=== PATIENT | male | born 1950 | race Caucasian/White ===

== ENCOUNTER 2024-05-29 09:41 | Emergency (ER) | payer BC ==
[2024-05-29 10:33] LABS: BASOPHILS ABSOLUTE AUTO 0.03 K/uL (0.00-0.20); BASOPHILS PERCENT AUTO 0.4 % (0.0-1.0); EOSINOPHILS ABSOLUTE AUTO 0.03 K/uL (0.00-0.45); EOSINOPHILS PERCENT AUTO 0.4 % (0.0-6.0); HEMATOCRIT 39.9 % (42.0-52.0); HEMOGLOBIN 13.9 g/dL (14.0-18.0); IMMATURE GRAN ABSOLUTE AUTO 0.03 K/uL (0.00-0.05); IMMATURE GRAN PERCENT AUTO 0.4 % (0.0-0.4); LYMPHOCYTES ABSOLUTE AUTO 1.08 K/uL (1.00-4.80); LYMPHOCYTES PERCENT AUTO 14.4 % (24.0-44.0); MEAN CORPUSCULAR HEMOGLOBIN 36.4 pg (28.0-32.0); MEAN CORPUSCULAR HGB CONC 34.8 g/dL (32.0-36.0); MEAN CORPUSCULAR VOLUME 104.5 fL (83.0-99.0); MEAN PLATELET VOLUME 10.3 fL (9.4-12.4); MONOCYTES ABSOLUTE AUTO 1.46 K/uL (0.00-0.80); MONOCYTES PERCENT AUTO 19.5 % (0.0-8.0); NEUTROPHILS ABSOLUTE AUTO 4.87 K/uL (1.80-7.70); NEUTROPHILS PERCENT AUTO 64.9 % (41.0-71.0); PLATELET COUNT,PLT 173 K/uL (150-400); RED BLOOD CELL COUNT 3.82 M/uL (4.52-5.90)
[2024-05-29 10:48] LABS: INR 1.16 (0.86-1.11)
== END 2024-05-29 14:22 | disposition home or self-care (01) ==
LOC: MW.ED 09:41
DX: S06.5X0A Traumatic subdural hemorrhage without loss of consciousness, initial encounter (principal); W01.198A Fall on same level from slipping, tripping and stumbling with subsequent striking against other object, initial encounter; Y93.89 Activity, other specified
CPT/HCPCS: 36415; 70450; 70450-26; 85025; 85610; 99283; 99285

== ENCOUNTER 2024-06-08 11:49 | Emergency (ER) | payer BC | END 2024-06-08 15:58 | disposition home or self-care (01) | LOC: MW.ED 11:49 | DX: S06.5X0A Traumatic subdural hemorrhage without loss of consciousness, initial encounter (principal); Z75.3 Unavailability and inaccessibility of health-care facilities; W01.198A Fall on same level from slipping, tripping and stumbling with subsequent striking against other object, initial encounter | CPT/HCPCS: 70450; 70450-26; 99283; 99284 ==

== ENCOUNTER 2024-09-18 13:31 | Inpatient (IN) | payer BC ==
[2024-09-18] MEDS ORDERED: Sodium Chloride 0.9% 2.5 ML Syringe FLUSH PRN ×2 (13:56→17:05)
[2024-09-18] MEDS ORDERED: Sodium Chloride 0.9% 10 ML Syringe FLUSH PRN ×2 (13:56→17:05)
[2024-09-18] MEDS: LORazepam 2 MG/ML SDV IVPUSH ONE ×2 (14:09→14:57)
[2024-09-18 14:37] LABS: INR 1.13 (0.86-1.11); PTT,PARTIAL THROMBOPLSTIN TIME 24.1 SEC (23.9-30.7)
[2024-09-18 14:54] LABS: LACTIC ACID 6.1 mmol/L (0.4-2.0)
[2024-09-18 15:03] LABS: A/G RATIO 0.9 (0.9-1.6); ALANINE AMINOTRANSFERASE,ALT 104 IU/L (14-63); ASPARTATE AMNIOTRANSFERASE,AST 156 IU/L (15-37); BILIRUBIN TOTAL 3.8 mg/dL (0.2-1.0); BLOOD UREA NITROGEN,BUN 15 mg/dL (7.0-18.0); CARBON DIOXIDE,CO2 23.1 mmol/L (21.0-32.0); CHLORIDE,CL 97 mmol/L (98-107); CREATININE 1.4 mg/dL (0.8-1.3); EST CRCL DRUG DOSING (CG) 50.81 mL/min; ETHANOL BLOOD MEDICAL <3 mg/dL; GLUCOSE RANDOM 124 mg/dL (74-106); POTASSIUM,K 3.6 mmol/L (3.5-5.1); PRO B-TYPE NATRIUR PEPT,BNPPRO 717 pg/mL (0-125); PROTEIN TOTAL,TP 7.4 g/dL (6.4-8.2); SODIUM,NA 138 mmol/L (136-148)
[2024-09-18 15:04] LABS: ESTIMATED GFR 53 mL/min (>60)
[2024-09-18 15:05] LABS: CREATINE KINASE,CK 1951 U/L (26-308)
[2024-09-18 15:14] LABS: BASOPHILS ABSOLUTE AUTO 0.01 K/uL (0.00-0.20); BASOPHILS PERCENT AUTO 0.1 % (0.0-1.0); EOSINOPHILS ABSOLUTE AUTO 0.00 K/uL (0.00-0.45); EOSINOPHILS PERCENT AUTO 0.0 % (0.0-6.0); IMMATURE GRAN ABSOLUTE AUTO 0.08 K/uL (0.00-0.05); IMMATURE GRAN PERCENT AUTO 0.8 % (0.0-0.4); LYMPHOCYTES ABSOLUTE AUTO 0.30 K/uL (1.00-4.80); LYMPHOCYTES PERCENT AUTO 3.0 % (24.0-44.0); MEAN PLATELET VOLUME 10.8 fL (9.4-12.4); MONOCYTES ABSOLUTE AUTO 1.24 K/uL (0.00-0.80); MONOCYTES PERCENT AUTO 12.3 % (0.0-8.0); NEUTROPHILS ABSOLUTE AUTO 8.49 K/uL (1.80-7.70); NEUTROPHILS PERCENT AUTO 83.8 % (41.0-71.0); NRBC ABSOLUTE 0.00 K/uL (0.00-0.02); NRBC PERCENT 0.0 /100WBC (0.0-0.2); RED BLOOD CELL COUNT 3.58 M/uL (4.52-5.90); WHITE BLOOD CELL COUNT,WBC 10.12 K/uL (3.9-11.3)
[2024-09-18 15:15] LABS: PLATELET COUNT,PLT 133 K/uL (150-400)
[2024-09-18] MEDS: Iopamidol 755 MG/ML 500 ML Multipack Bottle IVPUSH STA (15:31)
[2024-09-18] MEDS: Magnesium Sulfate 2 GM/50 mL 2 GM in Premix Bag 1 BAG IV ONE ×2 (16:03→18:32)
[2024-09-18] MEDS ORDERED: Ondansetron 4 MG/2 ML SDV IVPUSH PRN (17:05)
[2024-09-18] MEDS ORDERED: Naloxone 0.4 MG/ML SDV IVPUSH PRN (17:05)
[2024-09-18] MEDS: Pantoprazole 40 MG in Sodium Chloride 0.9% 10 ML IVPUSH SCH (18:33)
[2024-09-18] MEDS: Folic Acid 1 MG/0.2 ML UD Syringe IV SCH (18:33)
[2024-09-18] MEDS ORDERED: PHENobarbital Sodium 130 MG/ML SDV IVPUSH PRN (18:42)
[2024-09-18] MEDS ORDERED: PHENobarbitaL sodium 260 MG in Sodium Chloride 0.9% 100 ML IV PRN (18:43)
[2024-09-18] MEDS: PHENobarbital Sodium 130 MG/ML SDV IVPUSH PRN (22:17)
[2024-09-19 05:46] LABS: BASOPHILS ABSOLUTE AUTO 0.01 K/uL (0.00-0.20); BASOPHILS PERCENT AUTO 0.1 % (0.0-1.0); EOSINOPHILS ABSOLUTE AUTO 0.04 K/uL (0.00-0.45); EOSINOPHILS PERCENT AUTO 0.5 % (0.0-6.0); IMMATURE GRAN ABSOLUTE AUTO 0.04 K/uL (0.00-0.05); IMMATURE GRAN PERCENT AUTO 0.5 % (0.0-0.4); LYMPHOCYTES ABSOLUTE AUTO 1.18 K/uL (1.00-4.80); LYMPHOCYTES PERCENT AUTO 15.5 % (24.0-44.0); MEAN PLATELET VOLUME 10.5 fL (9.4-12.4); MONOCYTES ABSOLUTE AUTO 0.87 K/uL (0.00-0.80); MONOCYTES PERCENT AUTO 11.4 % (0.0-8.0); NEUTROPHILS ABSOLUTE AUTO 5.47 K/uL (1.80-7.70); NEUTROPHILS PERCENT AUTO 72.0 % (41.0-71.0); NRBC ABSOLUTE 0.00 K/uL (0.00-0.02); NRBC PERCENT 0.0 /100WBC (0.0-0.2); PLATELET COUNT,PLT 110 K/uL (150-400); RED BLOOD CELL COUNT 2.87 M/uL (4.52-5.90); WHITE BLOOD CELL COUNT,WBC 7.61 K/uL (3.9-11.3)
[2024-09-19 06:18] LABS: A/G RATIO 0.8 (0.9-1.6); ALANINE AMINOTRANSFERASE,ALT 73.0 IU/L (14-63); ASPARTATE AMNIOTRANSFERASE,AST 178.0 IU/L (15-37); BILIRUBIN TOTAL 1.7 mg/dL (0.2-1.0); BLOOD UREA NITROGEN,BUN 9.0 mg/dL (7.0-18.0); CARBON DIOXIDE,CO2 26.1 mmol/L (21.0-32.0); CHLORIDE,CL 104.0 mmol/L (98-107); CREATININE 0.6 mg/dL (0.8-1.3); EST CRCL DRUG DOSING (CG) 122.07 mL/min; GLUCOSE RANDOM 74.0 mg/dL (74-106); PHOSPHORUS 2.7 mg/dL (2.6-4.7); POTASSIUM,K 3.0 mmol/L (3.5-5.1); PROTEIN TOTAL,TP 5.0 g/dL (6.4-8.2); SODIUM,NA 141.0 mmol/L (136-148)
[2024-09-19 06:23] LABS: CREATINE KINASE,CK 4221.0 U/L (26-308); ESTIMATED GFR 101.0 mL/min (>60)
[2024-09-19 06:53] LABS: INR 1.1 (0.86-1.11)
[2024-09-19 09:37] LABS: GLUCOSE,URINE NEGATIVE (NEGATIVE); OCCULT BLOOD,URINE LARGE (NEGATIVE)
[2024-09-19 09:39] LABS: APPEARANCE,URINE SLT CLOUDY
[2024-09-19 09:46] LABS: AMPHETAMINES SCREEN, URINE NEGATIVE (CUTOFF=500); BUPRENORPHINE SCREEN,URINE NEGATIVE (CUTOFF=10); METHADONE SCREEN, URINE NEGATIVE (CUTOFF=200); METHAMPHETAMINES SCREEN, URINE NEGATIVE (CUTOFF=500); OXYCODONE SCREEN,URINE NEGATIVE (CUT0FF=100); PCP SCREEN,URINE NEGATIVE (CUTOFF=25); THC SCREEN,URINE 20 NG/ML NEGATIVE (CUTOFF=50)
[2024-09-19] MEDS: Potassium Chloride 20 MEQ Tab.ER PO SCH (09:50)
[2024-09-19 09:51] LABS: EPITHELIAL CELLS,URINE OCCASIONAL (NONE-FEW)
[2024-09-19] MEDS: NS with KCl 40mEq 1,000 ML IV SCH (09:52)
[2024-09-19 17:37] LABS: BLOOD UREA NITROGEN,BUN 7.0 mg/dL (7.0-18.0); CARBON DIOXIDE,CO2 26.0 mmol/L (21.0-32.0); CHLORIDE,CL 106.0 mmol/L (98-107); CREATININE 0.7 mg/dL (0.8-1.3); EST CRCL DRUG DOSING (CG) 104.63 mL/min; ESTIMATED GFR 97.0 mL/min (>60); GLUCOSE RANDOM 77.0 mg/dL (74-106); POTASSIUM,K 3.6 mmol/L (3.5-5.1); SODIUM,NA 141.0 mmol/L (136-148)
[2024-09-19] MEDS: D5%-0.9% NaCl w/ KCl 40 meq 1,000 ML IV SCH (17:49)
[2024-09-20 06:05] LABS: BASOPHILS ABSOLUTE AUTO 0.02 K/uL (0.00-0.20); BASOPHILS PERCENT AUTO 0.4 % (0.0-1.0); EOSINOPHILS ABSOLUTE AUTO 0.06 K/uL (0.00-0.45); EOSINOPHILS PERCENT AUTO 1.1 % (0.0-6.0); IMMATURE GRAN ABSOLUTE AUTO 0.02 K/uL (0.00-0.05); IMMATURE GRAN PERCENT AUTO 0.4 % (0.0-0.4); LYMPHOCYTES ABSOLUTE AUTO 0.95 K/uL (1.00-4.80); LYMPHOCYTES PERCENT AUTO 17.6 % (24.0-44.0); MEAN PLATELET VOLUME 10.9 fL (9.4-12.4); MONOCYTES ABSOLUTE AUTO 0.77 K/uL (0.00-0.80); MONOCYTES PERCENT AUTO 14.3 % (0.0-8.0); NEUTROPHILS ABSOLUTE AUTO 3.57 K/uL (1.80-7.70); NEUTROPHILS PERCENT AUTO 66.2 % (41.0-71.0); NRBC ABSOLUTE 0.00 K/uL (0.00-0.02); NRBC PERCENT 0.0 /100WBC (0.0-0.2); PLATELET COUNT,PLT 130 K/uL (150-400); RED BLOOD CELL COUNT 2.75 M/uL (4.52-5.90); WHITE BLOOD CELL COUNT,WBC 5.39 K/uL (3.9-11.3)
[2024-09-20 06:49] LABS: ALANINE AMINOTRANSFERASE,ALT 64.0 IU/L (14-63); ASPARTATE AMNIOTRANSFERASE,AST 149.0 IU/L (15-37); BILIRUBIN TOTAL 1.4 mg/dL (0.2-1.0); BLOOD UREA NITROGEN,BUN 5.0 mg/dL (7.0-18.0); CARBON DIOXIDE,CO2 23.7 mmol/L (21.0-32.0); CHLORIDE,CL 105.0 mmol/L (98-107); CREATININE 0.6 mg/dL (0.8-1.3); EST CRCL DRUG DOSING (CG) 122.07 mL/min; GLUCOSE RANDOM 92.0 mg/dL (74-106); PHOSPHORUS 2.1 mg/dL (2.6-4.7); POTASSIUM,K 3.3 mmol/L (3.5-5.1); PROTEIN TOTAL,TP 4.9 g/dL (6.4-8.2); SODIUM,NA 138.0 mmol/L (136-148)
[2024-09-20 06:53] LABS: A/G RATIO 0.8 (0.9-1.6); CREATINE KINASE,CK 2160.0 U/L (26-308); ESTIMATED GFR 101.0 mL/min (>60)
[2024-09-20] MEDS: Potassium Chloride 20 MEQ Tab.ER PO ONE (08:30)
[2024-09-20] MEDS: Magnesium Sulfate 4 GM/100 mL 4 GM in Premix Bag 1 BAG IV ONE (08:31)
[2024-09-20] MEDS: Phosphorus #1 250 MG Tab PO SCH (08:42)
[2024-09-21 05:30] LABS: BASOPHILS ABSOLUTE AUTO 0.02 K/uL (0.00-0.20); BASOPHILS PERCENT AUTO 0.4 % (0.0-1.0); EOSINOPHILS ABSOLUTE AUTO 0.09 K/uL (0.00-0.45); EOSINOPHILS PERCENT AUTO 1.7 % (0.0-6.0); IMMATURE GRAN ABSOLUTE AUTO 0.02 K/uL (0.00-0.05); IMMATURE GRAN PERCENT AUTO 0.4 % (0.0-0.4); LYMPHOCYTES ABSOLUTE AUTO 0.89 K/uL (1.00-4.80); LYMPHOCYTES PERCENT AUTO 16.3 % (24.0-44.0); MEAN PLATELET VOLUME 10.1 fL (9.4-12.4); MONOCYTES ABSOLUTE AUTO 0.90 K/uL (0.00-0.80); MONOCYTES PERCENT AUTO 16.5 % (0.0-8.0); NEUTROPHILS ABSOLUTE AUTO 3.53 K/uL (1.80-7.70); NEUTROPHILS PERCENT AUTO 64.7 % (41.0-71.0); NRBC ABSOLUTE 0.00 K/uL (0.00-0.02); NRBC PERCENT 0.0 /100WBC (0.0-0.2); PLATELET COUNT,PLT 144 K/uL (150-400); RED BLOOD CELL COUNT 2.85 M/uL (4.52-5.90); WHITE BLOOD CELL COUNT,WBC 5.45 K/uL (3.9-11.3)
[2024-09-21 06:07] LABS: A/G RATIO 0.7 (0.9-1.6); ALANINE AMINOTRANSFERASE,ALT 68.0 IU/L (14-63); ASPARTATE AMNIOTRANSFERASE,AST 137.0 IU/L (15-37); BILIRUBIN TOTAL 1.3 mg/dL (0.2-1.0); BLOOD UREA NITROGEN,BUN 2.0 mg/dL (7.0-18.0); CARBON DIOXIDE,CO2 24.2 mmol/L (21.0-32.0); CHLORIDE,CL 104.0 mmol/L (98-107); CREATININE 0.6 mg/dL (0.8-1.3); EST CRCL DRUG DOSING (CG) 122.07 mL/min; GLUCOSE RANDOM 83.0 mg/dL (74-106); PHOSPHORUS 3.0 mg/dL (2.6-4.7); POTASSIUM,K 3.4 mmol/L (3.5-5.1); PROTEIN TOTAL,TP 5.2 g/dL (6.4-8.2); SODIUM,NA 137.0 mmol/L (136-148)
[2024-09-21 06:18] LABS: CREATINE KINASE,CK 1178.0 U/L (26-308); ESTIMATED GFR 101.0 mL/min (>60)
[2024-09-21] MEDS: Magnesium Sulfate 2 GM/50 mL 2 GM in Premix Bag 1 BAG IV ONE (09:07)
[2024-09-21] MEDS: Potassium Chloride 20 MEQ Tab.ER PO SCH (09:07)
[2024-09-22 07:30] LABS: BASOPHILS ABSOLUTE AUTO 0.02 K/uL (0.00-0.20); BASOPHILS PERCENT AUTO 0.4 % (0.0-1.0); EOSINOPHILS ABSOLUTE AUTO 0.09 K/uL (0.00-0.45); EOSINOPHILS PERCENT AUTO 1.7 % (0.0-6.0); IMMATURE GRAN ABSOLUTE AUTO 0.01 K/uL (0.00-0.05); IMMATURE GRAN PERCENT AUTO 0.2 % (0.0-0.4); LYMPHOCYTES ABSOLUTE AUTO 0.81 K/uL (1.00-4.80); LYMPHOCYTES PERCENT AUTO 14.9 % (24.0-44.0); MEAN PLATELET VOLUME 10.1 fL (9.4-12.4); MONOCYTES ABSOLUTE AUTO 1.06 K/uL (0.00-0.80); MONOCYTES PERCENT AUTO 19.5 % (0.0-8.0); NEUTROPHILS ABSOLUTE AUTO 3.45 K/uL (1.80-7.70); NEUTROPHILS PERCENT AUTO 63.3 % (41.0-71.0); NRBC ABSOLUTE 0.00 K/uL (0.00-0.02); NRBC PERCENT 0.0 /100WBC (0.0-0.2); PLATELET COUNT,PLT 157 K/uL (150-400); RED BLOOD CELL COUNT 2.65 M/uL (4.52-5.90); WHITE BLOOD CELL COUNT,WBC 5.44 K/uL (3.9-11.3)
[2024-09-22 08:11] LABS: A/G RATIO 0.7 (0.9-1.6); ALANINE AMINOTRANSFERASE,ALT 63.0 IU/L (14-63); ASPARTATE AMNIOTRANSFERASE,AST 95.0 IU/L (15-37); BILIRUBIN TOTAL 0.9 mg/dL (0.2-1.0); BLOOD UREA NITROGEN,BUN 2.0 mg/dL (7.0-18.0); CARBON DIOXIDE,CO2 21.9 mmol/L (21.0-32.0); CHLORIDE,CL 106.0 mmol/L (98-107); CREATINE KINASE,CK 367.0 U/L (26-308); CREATININE 0.6 mg/dL (0.8-1.3); EST CRCL DRUG DOSING (CG) 122.07 mL/min; GLUCOSE RANDOM 91.0 mg/dL (74-106); PHOSPHORUS 3.2 mg/dL (2.6-4.7); POTASSIUM,K 3.3 mmol/L (3.5-5.1); PROTEIN TOTAL,TP 4.8 g/dL (6.4-8.2); SODIUM,NA 138.0 mmol/L (136-148)
[2024-09-22 08:12] LABS: ESTIMATED GFR 101.0 mL/min (>60)
[2024-09-22] MEDS: Potassium Chloride 20 MEQ Tab.ER PO ONE (11:57)
[2024-09-23 06:28] LABS: MEAN PLATELET VOLUME 10.2 fL (9.4-12.4); NRBC ABSOLUTE 0.00 K/uL (0.00-0.02); NRBC PERCENT 0.0 /100WBC (0.0-0.2); PLATELET COUNT,PLT 189 K/uL (150-400); RED BLOOD CELL COUNT 2.94 M/uL (4.52-5.90); WHITE BLOOD CELL COUNT,WBC 4.65 K/uL (3.9-11.3)
[2024-09-23 06:45] LABS: BASOPHILS ABSOLUTE MAN 0.05 K/uL (0.00-0.20); BASOPHILS PERCENT MAN 1 % (0-1); EOSINOPHILS ABSOLUTE MAN 0.09 K/uL (0.00-0.45); EOSINOPHILS PERCENT MAN 2 % (0-6); LYMPHOCYTES ABSOLUTE MAN 1.16 K/uL (1.00-4.80); LYMPHOCYTES PERCENT MAN 25 % (24-44); MONOCYTES ABSOLUTE MAN 0.79 K/uL (0.00-0.80); MONOCYTES PERCENT MAN 17 % (0-8); SEG NEUTROPHILS ABSOLUTE MAN 2.56 K/uL (1.80-7.70); SEG NEUTROPHILS PERCENT MAN 55 % (41-71)
[2024-09-23 06:57] LABS: A/G RATIO 0.7 (0.9-1.6); ALANINE AMINOTRANSFERASE,ALT 76.0 IU/L (14-63); ASPARTATE AMNIOTRANSFERASE,AST 101.0 IU/L (15-37); BILIRUBIN TOTAL 0.9 mg/dL (0.2-1.0); BLOOD UREA NITROGEN,BUN 2.0 mg/dL (7.0-18.0); CARBON DIOXIDE,CO2 23.8 mmol/L (21.0-32.0); CHLORIDE,CL 103.0 mmol/L (98-107); CREATINE KINASE,CK 218.0 U/L (26-308); CREATININE 0.5 mg/dL (0.8-1.3); EST CRCL DRUG DOSING (CG) 146.48 mL/min; GLUCOSE RANDOM 91.0 mg/dL (74-106); PHOSPHORUS 3.4 mg/dL (2.6-4.7); POTASSIUM,K 3.3 mmol/L (3.5-5.1); PROTEIN TOTAL,TP 5.4 g/dL (6.4-8.2); SODIUM,NA 137.0 mmol/L (136-148)
[2024-09-23 07:06] LABS: ESTIMATED GFR 107.0 mL/min (>60)
[2024-09-23] MEDS ORDERED: Magnesium Sulfate/Water 2 GM/50 ML Premix Bag IV ONE (10:01)
[2024-09-23] MEDS: Potassium Chloride 20 MEQ Tab.ER PO ONE (11:04)
[2024-09-23] MEDS: Magnesium Sulfate 2 GM/50 mL 2 GM in Premix Bag 1 BAG IV ONE (11:06)
[2024-09-24 05:44] LABS: MEAN PLATELET VOLUME 10.0 fL (9.4-12.4); NRBC ABSOLUTE 0.00 K/uL (0.00-0.02); NRBC PERCENT 0.0 /100WBC (0.0-0.2); PLATELET COUNT,PLT 204 K/uL (150-400); RED BLOOD CELL COUNT 2.87 M/uL (4.52-5.90); WHITE BLOOD CELL COUNT,WBC 4.82 K/uL (3.9-11.3)
[2024-09-24 06:13] LABS: A/G RATIO 0.7 (0.9-1.6); ALANINE AMINOTRANSFERASE,ALT 82.0 IU/L (14-63); ASPARTATE AMNIOTRANSFERASE,AST 100.0 IU/L (15-37); BILIRUBIN TOTAL 0.8 mg/dL (0.2-1.0); BLOOD UREA NITROGEN,BUN 1.0 mg/dL (7.0-18.0); CARBON DIOXIDE,CO2 26.1 mmol/L (21.0-32.0); CHLORIDE,CL 102.0 mmol/L (98-107); CREATININE 0.6 mg/dL (0.8-1.3); EST CRCL DRUG DOSING (CG) 122.07 mL/min; GLUCOSE RANDOM 97.0 mg/dL (74-106); PHOSPHORUS 4.3 mg/dL (2.6-4.7); POTASSIUM,K 3.6 mmol/L (3.5-5.1); PROTEIN TOTAL,TP 5.1 g/dL (6.4-8.2); SODIUM,NA 137.0 mmol/L (136-148)
[2024-09-24 06:15] LABS: ESTIMATED GFR 101.0 mL/min (>60)
[2024-09-24 06:56] LABS: EOSINOPHILS ABSOLUTE MAN 0.10 K/uL (0.00-0.45); EOSINOPHILS PERCENT MAN 2 % (0-6); LYMPHOCYTES ABSOLUTE MAN 0.72 K/uL (1.00-4.80); LYMPHOCYTES PERCENT MAN 15 % (24-44); MONOCYTES ABSOLUTE MAN 1.06 K/uL (0.00-0.80); MONOCYTES PERCENT MAN 22 % (0-8); SEG NEUTROPHILS ABSOLUTE MAN 2.89 K/uL (1.80-7.70); SEG NEUTROPHILS PERCENT MAN 60 % (41-71)
[2024-09-24] MEDS: Magnesium Sulfate 2 GM/50 mL 2 GM in Premix Bag 1 BAG IV ONE (17:32)
[2024-09-25 05:46] LABS: MEAN PLATELET VOLUME 10.2 fL (9.4-12.4); NRBC ABSOLUTE 0.00 K/uL (0.00-0.02); NRBC PERCENT 0.0 /100WBC (0.0-0.2); PLATELET COUNT,PLT 223 K/uL (150-400); RED BLOOD CELL COUNT 2.94 M/uL (4.52-5.90); WHITE BLOOD CELL COUNT,WBC 4.75 K/uL (3.9-11.3)
[2024-09-25 06:28] LABS: EOSINOPHILS ABSOLUTE MAN 0.14 K/uL (0.00-0.45); EOSINOPHILS PERCENT MAN 3 % (0-6); LYMPHOCYTES ABSOLUTE MAN 1.00 K/uL (1.00-4.80); LYMPHOCYTES PERCENT MAN 21 % (24-44); MONOCYTES ABSOLUTE MAN 1.19 K/uL (0.00-0.80); MONOCYTES PERCENT MAN 25 % (0-8); SEG NEUTROPHILS ABSOLUTE MAN 2.42 K/uL (1.80-7.70); SEG NEUTROPHILS PERCENT MAN 51 % (41-71)
[2024-09-25 06:35] LABS: BLOOD UREA NITROGEN,BUN 2.0 mg/dL (7.0-18.0); CARBON DIOXIDE,CO2 27.4 mmol/L (21.0-32.0); CHLORIDE,CL 101.0 mmol/L (98-107); CREATININE 0.6 mg/dL (0.8-1.3); EST CRCL DRUG DOSING (CG) 122.07 mL/min; GLUCOSE RANDOM 94.0 mg/dL (74-106); POTASSIUM,K 3.6 mmol/L (3.5-5.1); SODIUM,NA 138.0 mmol/L (136-148)
[2024-09-25 06:37] LABS: ESTIMATED GFR 101.0 mL/min (>60)
[2024-09-25] MEDS: Magnesium Sulfate 2 GM/50 mL 2 GM in Premix Bag 1 BAG IV ONE (08:25)
== END 2024-09-25 12:09 | disposition home health service (06) | DRG 421 ==
LOC: MW.ED 13:31 → MW.ICU 16:52 → MW.MS 09-20 11:48
PROVIDERS: ADMIT Family Medicine; ATTEND Family Medicine
PROC: HZ2ZZZZ Detoxification Services for Substance Abuse Treatment (ICD-10-PCS; principal; 2024-09-18)
DX: E51.2 Wernicke's encephalopathy (principal); M62.82 Rhabdomyolysis; E46 Unspecified protein-calorie malnutrition; F10.231 Alcohol dependence with withdrawal delirium; Z66 Do not resuscitate; E86.0 Dehydration; E83.42 Hypomagnesemia; D69.6 Thrombocytopenia, unspecified; E80.6 Other disorders of bilirubin metabolism; R74.01 Elevation of levels of liver transaminase levels; E87.20 Acidosis, unspecified; K76.0 Fatty (change of) liver, not elsewhere classified; K70.10 Alcoholic hepatitis without ascites; R42 Dizziness and giddiness; A04.72 Enterocolitis due to Clostridium difficile, not specified as recurrent; Z68.24 Body mass index [BMI] 24.0-24.9, adult
CPT/HCPCS: 36415; 51702; 70450; 70450-26; 71045; 71045-26; 71260; 71260-26; 72125; 72125-26; 74177; 74177-26; 80048; 80053; 80305; 80307; 81001; 82140; 82550; 82947; 83605; 83735; 83880; 84100; 84484; 85025; 85610; 85730; 86850; 86900; 86901; 87040; 87045; 87046; 87086; 87324; 87449; 87493; 87899; 93005; 96361; 96365; 96375; 96376; 97110-GO; 97110-GP; 97116-GP; 97162-GP; 97165-GO; 97530-GP; 99232; 99233; 99238; 99284; 99285-25; A9270-GY; J2060; J2470; J2560; J3411; J3475; J3480; J3490; J7030; J7050; Q9967